=== PATIENT | female | born 1980 | race Caucasian/White ===

== ENCOUNTER 2020-05-12 09:30 | Outpatient (CLI) | payer BC, SELFPAY | END 2020-05-12 09:31 | disposition home or self-care (01) | LOC: ANHSURGERY 09:33 | PROVIDERS: PCP Family Medicine; Visit Provider Urology | DX: N39.3 Stress incontinence (female) (male) (principal) | CPT/HCPCS: 87086; 87088 ==

== ENCOUNTER 2020-05-21 00:44 | Outpatient (CLI) | payer BC, SELFPAY ==
[2020-05-21 18:19] LABS: SARS-CoV-2 RNA PCR Negative
== END 2020-05-21 00:45 | disposition home or self-care (01) ==
LOC: ANHCOVIDDT 00:44
PROVIDERS: PCP Family Medicine; Visit Provider Urology
DX: Z01.812 Encounter for preprocedural laboratory examination (principal); Z20.828 Contact with and (suspected) exposure to other viral communicable diseases
CPT/HCPCS: 87635; C9803; U0003

== ENCOUNTER 2020-05-23 02:02 | Day surgery (SDC) | payer BC, SELFPAY ==
[2020-05-06 14:09] VITALS: BMI 35.0
--- NOTE | 2020-05-18 19:52 | PM.IMHP ---
H&P: HPI History of Present Illness Date/Time: 05/18/20 19:52 Chief complaint: Stress Incontinence Narrative: Bria Florentino is a 39 year old female with MARI and asymptomatic POP [facility] Social History Social History Smoking status: Never smoker Alcohol intake: never Substance use: never Substance use type: does not use Meds Home Medications and Allergies Home Medications Medication Instructions Recorded Confirmed Type cetirizine 10 mg tablet 10 mg PO DAILY 10/19/19 05/06/20 History levonorgestrel 20 mcg/24 hours (5 1 device I-UTERINE ONCE 10/19/19 05/06/20 History yrs) 52 mg intrauterine device fluoxetine 40 mg PO DAILY 05/06/20 05/06/20 History Allergies Allergy/AdvReac Type Severity Reaction Status Date / Time No Known Allergies Allergy Unknown Verified 05/06/20 14:01 Exam Const: General: no acute distress HENMT: Mouth: Yes moist mucous membranes Eyes: General: appearance normal, both eyes and all related structures Resp: Effort & Inspection: normal respiratory effort GI: GI Palp: Yes Soft to palpation : External Female Exam: normal external appearance Other: Urethral hypermobility [place] at -1 Skin: General skin exam: normal color Neuro: Speech: normal speech Extrem: General: normal exam except as noted Assessment and Plan Assessment and plan (1) MARI (stress urinary incontinence, female): Code(s): N39.3 - Stress incontinence (female) (male) Status: Acute Assessment and Plan: urethral sling (2) Uterine prolapse: Code(s): N81.4 - Uterovaginal prolapse, unspecified Status: Acute Assessment and Plan: observation
--- NOTE | 2020-05-22 11:49 | WPDANESEPPF ---
Anes - Initial Pre Proc Eval Procedure: Operation Date: 05/23/20 11:00 Proposed Procedures p Urethral Sling - Arnoldo Byers MD Date/Time: 05/22/20 11:49 Surgeon: Arnoldo Byers MD Pre Op Diagnosis: Stress Incontinence Patient Data Age: 39 Gender: F Height: 1.57 m Weight: 87 kg Allergies Allergy/AdvReac Type Severity Reaction Status Date / Time No Known Allergies Allergy Unknown Verified 05/23/20 09:47 Home Medications Medication Instructions Recorded Confirmed Type cetirizine 10 mg tablet 10 mg PO DAILY 10/19/19 05/23/20 History levonorgestrel 20 mcg/24 hours (5 1 device I-UTERINE ONCE 10/19/19 05/23/20 History yrs) 52 mg intrauterine device fluoxetine 40 mg PO DAILY 05/06/20 05/23/20 History Patient hx anesthesia problems: none Family hx anesthesia problems: none [facility] Social History Social History (Reviewed 04/15/20 @ 08:33 by Tatiana Aponte [facility]) Smoking status: Never smoker Alcohol intake: never Substance use: never Substance use type: does not use Living arrangements: with family Anes - Eval Final PreProcedure Day of Procedure 05/22/20 11:49 Patient weight: obese Heart: regular rate and rhythm Lungs: clear to auscultation and normal air movement Airway: Mallampati scale class II Neurological: alert and oriented Last oral intake: >/= 8 hours ASA classification: II Emergent: no Anesthetic plan: proceed Anesthesia type and monitoring: general GIVS and standard monitoring Informed Consent: The patient's anesthetic plan and its attendant risks and benefits were discussed with the patient/family/POA. Questions were solicited and answers provided to the satisfaction of the patient/family/POA.
--- NOTE | 2020-05-23 07:20 | WPDHPUPDATE1 ---
History and Physical Update Update Date/Time: 05/23/20 07:20 History and Physical has been reviewed, including an updated exam of the patient. There are NO changes in the patient's condition. Risks, benefits, and alternatives have been discussed and questions answered. Patient agrees to proceed with procedure.
[2020-05-23] MEDS: LACTATED RINGERS 1,000 ML 30 ML IV CONT (09:32)
[2020-05-23 10:05] VITALS: BP 134/72; PULSE 76; RESP 18; TEMP 36.3; O2SAT 99
[2020-05-23] MEDS: ceFAZolin 2 GM/D5W 50 ML 2 GM/50 ML BAG IVPB (11:13)
[2020-05-23] MEDS: BUPIVACAINE/EPINEPHRINE 0.25% 50 ML VIAL 10 ML INFILTRATE (11:35)
--- NOTE | 2020-05-23 11:44 | PM.PROC ---
Procedure Note - Detailed Date of procedure: 05/23/20 Pre-op diagnosis: Stress Incontinence Stress urinary incontinence Post-op diagnosis: same Procedure performed: Transobturator Mid-urethral sling Cystoscopy Description of procedure: This is a patient with confirmed stress urinary incontinence. She desires correction. She understands the risks of bleeding, infection, damage to the urinary tract, lack of cure of stress incontinence, recurrence of stress incontinence, postoperative voiding dysfunction including incontinence and retention, need for ancillary procedures to loosen remove the sling, postoperative voiding dysfunction including retention and overactive bladder, hip and leg pain, dyspareunia, mesh related complications including exposure and extrusion. She agrees to proceed. She understands it will not help overactive bladder symptoms if present. She was correctly identified and informed consent obtained. She is brought to the operating room. She was given appropriate anesthesia. She was placed in the dorsal lithotomy position. All pressure points were padded. She was given appropriate perioperative antibiotics and a time-out performed. A Jimenez catheter is placed. she has a cystocele with uterine prolapse. She is not ready for intervention on this quite yet As she is minimally bothered. I marked out the thigh incisions anesthetize the skin and made those incisions. I anesthetized the anterior vaginal wall over the mid urethra. I made a 1 cm incision. I dissected out laterally taking great care not to injure the urethra or the vaginal wall. Passed the helical trocars 1st on the left and then on the right from the thigh incision towards the vaginal incision. Sling was connected to the trocars and brought out through the thigh incision. I tensioned the sling appropriately. I cut and removed the plastic sheaths. I closed the incision with 2 0 Vicryl. I then performed cystoscopy. There was no surgical artifact or abnormalities inside the bladder. The urethra was normal without surgical artifact. I cut the excess sling material. I closed the incisions with glue. She was awakened and transferred to the PACU in stable condition. Implants: Mid urethral sling Surgeon: Arnoldo Byers MD Drains: No Packing: No Pathology: none sent Complications: No immediate complications Condition: stable Disposition: PACU
[2020-05-23 11:50] VITALS: BP 117/67; PULSE 80; RESP 16; O2SAT 96
[2020-05-23] MEDS: IBUPROFEN 400 MG TABLET PO (12:17)
[2020-05-23 12:20] VITALS: BP 135/71; PULSE 79; RESP 16
[2020-05-23 12:50] VITALS: BP 142/71; PULSE 62; RESP 18
== END 2020-05-23 12:55 | disposition home or self-care (01) ==
PROVIDERS: PCP Family Medicine; Visit Provider Urology
PROC: (CPT 51992; principal; 2020-05-23 11:00)
DX: N39.3 Stress incontinence (female) (male) (principal); N32.81 Overactive bladder; N81.4 Uterovaginal prolapse, unspecified
CPT/HCPCS: 51992; A9270; C1771; J0690; J2250; J2704; J3010; J7030; J7120

== ENCOUNTER 2021-11-17 13:33 | Outpatient (CLI) | payer BC, SELFPAY ==
--- NOTE | ~2021-11-17 | US_ITS ---
EXAMINATION: US pelvic complete w TV DATE: 11/17/2021 14:21 INDICATION: Abnormal uterine bleeding. Missing IUD strings. Comparison:No prior studies for comparison. TECHNIQUE: Multiple transabdominal and endovaginal sonographic images of the pelvis performed. FINDINGS: The uterus measures 11.7 x 5.6 x 7.8 cm. There is a uterine fibroid measuring 3.9 x 3.8 x 3 .9 cm. The endometrial complex measures 6 mm. IUD is not identified in the uterus. The right ovary measures 4.3 x 3.5 x 3.9 cm and the left ovary measures 2.2 x 1.7 x 1.7 cm. There is a 2.7 cm right ovarian cyst. There are small follicles in each ovary. Normal doppler signal in both o varies. There is no free fluid in the pelvis. There are no abnormal masses seen on either side. IMPRESSION: 1. Enlarged fibroid uterus. IUD not visualized. 2: 2.7 cm right ovarian cyst. Reviewed, dictated and finalized at location B. CUTTER
== END 2021-11-17 13:34 ==
LOC: MICIMG 13:33
PROVIDERS: Visit Provider Nurse Practitioner
DX: N93.8 Other specified abnormal uterine and vaginal bleeding (principal); T83.32XA Displacement of intrauterine contraceptive device, initial encounter; D25.9 Leiomyoma of uterus, unspecified; N83.201 Unspecified ovarian cyst, right side
CPT/HCPCS: 76830; 76856

== ENCOUNTER 2021-11-20 09:26 | Outpatient (CLI) | payer BC, SELFPAY ==
--- NOTE | ~2021-11-20 | XR_ITS ---
EXAMINATION: XR abdomen/kub 1V DATE: 11/20/2021 10:56 INDICATION: Displacement of intrauterine device. TECHNIQUE: A supine view of the abdomen on 2 radiographs was obtained. COMPARISON: None. FINDINGS: There are no dilated loops of bowel. There is no intrauterine device. IMPRESSION: 1. No intrauterine device present. Reviewed, dictated and finalized at location A. ICAL RESEARCH TECHNICIAN
== END 2021-11-20 09:27 ==
PROVIDERS: Visit Provider Obstetrics & Gynecology Gynecology
DX: T83.32XA Displacement of intrauterine contraceptive device, initial encounter (principal)
CPT/HCPCS: 74018

== ENCOUNTER → 2022-01-04 07:28 | Outpatient (CLI) | payer BC, SELFPAY ==
--- NOTE | ~2022-01-04 | MM_ITS ---
EXAMINATION: MM screening caridad BI w daquan HISTORY: Screening mammogram TECHNIQUE: Craniocaudal and mediolateral oblique 3-D tomosynthesis images were obtained and synthetic 2-D images were generated. CAD analysis was submitted and interpreted. COMPARISON: No prior mammogram is available for comparison at this institution. BREAST PARENCHYMAL COMPOSITION: The breasts are heterogeneously dense, which may obscure small masses . FINDINGS: There is no evidence of suspicious mass, calcification, or architectural distortion to sugg est malignancy in either breast. There has been no suspicious interval change. IMPRESSION: 1. No mammographic evidence of malignancy. 2. Recommend routine screening mammography in one year. BI-RADS Category 1: Negative Reviewed, dictated and finalized at location A.
== END ==
PROVIDERS: PCP Family Medicine; Visit Provider Nurse Practitioner
DX: Z12.31 Encounter for screening mammogram for malignant neoplasm of breast (principal)
CPT/HCPCS: 77063; 77067

== ENCOUNTER 2022-01-25 01:45 | Day surgery (SDC) | payer BC, SELFPAY ==
[2022-01-13 15:03] VITALS: BMI 34.7
--- NOTE | 2022-01-13 15:10 | PC.NURSE ---
Report to the Outpatient Waiting Room, entrance under the green pavilion located off [facility], at time 0600 on date 01/25/22. OR Time: 0730. - You and your visitor will be asked a series of questions to screen for COVID 19 for your protection. - A mask is required within the hospital. One visitor will be allowed to accompany the patient into the hospital. Patients visitor will be instructed to remain with patient at all times or leave the building. We will allow the visitor to come back to the postoperative area when patient is ready. Preoperative COVID Testing Requirements: No COVID Test needed if: (proof is required; if not received patient will have Rapid Test prior to entry) - Patient has received COVID Vaccine at least 14 days prior to procedure date or - Patient has positive COVID test result within last 90 days of surgery date. COVID Test needed if above criteria is not met Patients may have clear liquids (water, carbonated beverages, clear teas, apple juice) until 3 hours prior to surgery with a maximum of 20 ounces. - No food from midnight until time of surgery Take the following medications with a SIP of water the morning of surgery: FLUOXETINE Medications to discontinue per physician: N/A Date to take last dose: N/A Please no make-up, nail turkmen, hairspray, perfume, deodorant, or body powder the day of surgery. No jewelry (including any body piercings) or valuables the day of surgery, leave them at home. Please take a shower or bath the night before, or the morning of, surgery with an antibacterial soap. Wear comfortable, loose fitting clothing. - Jewelry must be removed prior to entering the operating room. Rings and piercings that are not removed may be cut off. - The hospital will not accept responsibility for valuables. - Please leave all valuables, including medications, at home the day of surgery. If you are going home after surgery, a licensed professional driver must drive you home. - NO public transportation without another adult. - We recommend that an adult stay with you for 24 hours following discharge. - We also recommend that you do not drive, make important decision, drink alcoholic beverages, or take any drugs that were not prescribed by your health care provider for at least 24 hours after your discharge time. Follow any additional instructions given to you from your surgeon. Telephone instructions given to DERICK SORENSEN and asked if any additional questions and then verbalized understanding. Patient advised to call surgeon office or pre surgery nurse liaison [phone] if any additional questions.
--- NOTE | 2022-01-25 07:07 | WPDANESEPPF ---
Anes - Initial Pre Proc Eval Procedure: Operation Date: 01/25/22 07:30 Proposed Procedures p Hysteroscopy Dilation and Curettage - Madiha Guo MD Date/Time: 01/25/22 07:07 Surgeon: Madiha Guo MD Pre Op Diagnosis: Menorrhagia Patient Data Age: 41 Gender: F Height: 1.57 m Weight: 86.2 kg Allergies Allergy/AdvReac Type Severity Reaction Status Date / Time No Known Allergies Allergy Unknown Verified 01/25/22 07:30 Home Medications Medication Instructions Recorded Confirmed Type cetirizine 10 mg tablet 10 mg PO DAILY 10/19/19 01/25/22 History fluoxetine 40 mg capsule See Rx Instructions .ROUTE 05/11/21 01/25/22 Rx .COMPLEX #90 cap Patient hx anesthesia problems: none Family hx anesthesia problems: none Results Review: All pre-operative results and documents have been reviewed as part of the pre-operative evaluation. [facility] Past Medical History Medical History (Updated 01/25/22 @ 07:35 by Madiha Guo MD) Depression Generalized anxiety disorder with panic attacks History of spontaneous X2 (normal spontaneous vaginal delivery) X2 Obesity (BMI 30.0-34.9) Surgical History Surgical History Status post creation of urethral sling by suprapubic approach Family History Family History (Updated 10/23/21 @ 12:16 by DANIKA Ivan) Father Cerebrovascular accident Mother Heart abnormality Thyroid dysfunction High cholesterol Sibling No problems noted. Sibling No problems noted. Sibling No problems noted. Grandparent , 2002; unknown cause No problems noted. Other Diabetes mellitus Family history of hypercholesterolemia Family history of lymphoma Social History Social History (Updated 10/23/21 @ 08:57 by DANIKA Ivan) Smoking status: Never smoker Alcohol intake: current Alcohol use details: 2/MONTH Substance use: never Substance use type: does not use Living arrangements: with family Spiritual care concerns: No Anes - Eval Final PreProcedure Day of Procedure 01/25/22 07:07 Patient weight: obese Heart: regular rate and rhythm Lungs: clear to auscultation and normal air movement Airway: Mallampati scale class II Neurological: alert and oriented Last oral intake: >/= 8 hours ASA classification: II Emergent: no Anesthetic plan: proceed Anesthesia type and monitoring: general GIVS and standard monitoring Results Review: All pre-operative results and documents have been reviewed as part of the pre-operative evaluation. Informed Consent: The patient's anesthetic plan and its attendant risks and benefits were discussed with the patient/family/POA. Questions were solicited and answers provided to the satisfaction of the patient/family/POA.
[2022-01-25 07:18] VITALS: BP 165/90; PULSE 72; RESP 16; TEMP 36.3; O2SAT 99
[2022-01-25] MEDS: ACETAMINOPHEN 500 MG TABLET 1000 MG PO (07:30)
--- NOTE | 2022-01-25 07:30 | WPDHPUPDATE1 ---
History and Physical Update Update Date/Time: 01/25/22 07:30 History and Physical has been reviewed, including an updated exam of the patient. There are NO changes in the patient's condition. Risks, benefits, and alternatives have been discussed and questions answered. Patient agrees to proceed with procedure.
--- NOTE | 2022-01-25 07:30 | PM.HPGS ---
History of Present Illness History of Present Illness Consent: Risks, benefits, and alternatives have been discussed and questions answered. Patient agrees to proceed with procedure. Chief complaint: Menorrhagia Narrative: Bria Florentino is a 41 year old female with cycles approximately every 2 weeks July of 2021 in August of 2021 followed by monthly cycles that are quite heavy changing approximately a pad per hour. Patient was determined to have her IUD expulsed. Pelvic ultrasound revealed no IUD as did KUB. Ultrasound did show a uterine fibroid and was otherwise normal. It was recommended to proceed with D&C hysteroscopy to evaluate the endometrium. Risks of infection, bleeding, perforation, and fluid overload were reviewed. Patient voices understanding and agrees to proceed. Review of Systems Constitutional: Constitutional: Reports night sweats Musculoskeletal: Musculoskeletal: Reports back pain, Reports arthralgias and Reports neck pain PMFSH Past Medical History Medical History (Updated 01/25/22 @ 07:35 by Madiha Guo MD) Depression Generalized anxiety disorder with panic attacks History of spontaneous X2 (normal spontaneous vaginal delivery) X2 Obesity (BMI 30.0-34.9) Surgical History Surgical History Status post creation of urethral sling by suprapubic approach Family History Family History (Updated 10/23/21 @ 12:16 by DANIKA Ivan) Father Cerebrovascular accident Mother Heart abnormality Thyroid dysfunction High cholesterol Sibling No problems noted. Sibling No problems noted. Sibling No problems noted. Grandparent , 2002; unknown cause No problems noted. Other Diabetes mellitus Family history of hypercholesterolemia Family history of lymphoma Social History Social History (Updated 10/23/21 @ 08:57 by Gloria Lynch Bob) Smoking status: Never smoker Alcohol intake: current Alcohol use details: 2/MONTH Substance use: never Substance use type: does not use Living arrangements: with family Spiritual care concerns: No Meds Home Medications and Allergies Home Medications Medication Instructions Recorded Confirmed Type cetirizine 10 mg tablet 10 mg PO DAILY 10/19/19 01/13/22 History fluoxetine 40 mg capsule See Rx Instructions .ROUTE 05/11/21 01/13/22 Rx .COMPLEX #90 cap Allergies Allergy/AdvReac Type Severity Reaction Status Date / Time No Known Allergies Allergy Unknown Verified 01/25/22 07:30 Exam Const: General: healthy appearing and alert Orientation/consciousness: patient oriented x3 Resp: Effort & Inspection: normal respiratory effort Auscultation: clear to auscultation bilaterally Cardio: Rate: regular rate Rhythm: regular rhythm GI: GI Palp: Yes Soft to palpation, No Tenderness to palpation present (GI) and No Palpable mass present : External Female Exam: normal external appearance Speculum Exam - Vagina: normal appearance of the vagina, normal vaginal discharge and other (1st degree cystocele) Speculum Exam - Cervix: normal appearance of the cervix Bimanual exam- vagina & uterus: uterine size normal and consistency normal Bimanual Exam- Adnexa, other: normal adnexae and No adnexal tenderness Neuro: General: patient oriented x3 Assessment and Plan Assessment and plan (1) Menorrhagia: Code(s): N92.0 - Excessive and frequent menstruation with regular cycle Status: Acute Assessment and Plan: Plan to proceed with D&C hysteroscopy
[2022-01-25] MEDS: LACTATED RINGERS 1,000 ML 30 ML IV CONT (07:42)
[2022-01-25] MEDS: KETOROLAC 30 MG/ML VIAL (*BKC) IV PUSH (08:28)
--- NOTE | 2022-01-25 08:33 | W.PM.PROC2 ---
Procedure Note - Detailed Date of Procedure 01/25/22 Pre-op Diagnosis Menorrhagia Post-op Diagnosis Same Procedure Performed D&C hysteroscopy Surgeon Madiha Guo MD Anesthesia MAC and Local Findings Uterus sounds to 8cm and appears grossly normal Description of Procedure The patient was taken to operating room and placed under anesthesia in the dorsal lithotomy position. She was prepped and draped in the usual sterile fashion. [place] speculum was placed in the vagina and the cervix is grasped on the anterior lip with a tenaculum. The cervix is injected in each quadrant with 1% lidocaine. The uterus is sounded to 8cm. The cervix is serially dilated to an 8 [place]. The diagnostic hysteroscope was placed with the stated findings. The hysteroscope was removed. The endometrium was sharply curetted until a good uterine cry was noted in all areas. All instruments were then removed. Patient is awakened from anesthesia and taken to recovery in stable condition. Sponge, needle and instrument counts are correct per the OR staff. Estimated Blood Loss 5 Drains No Packing No Pathology Yes (Endometrial curetting) Complications No immediate complications Condition Stable Disposition PACU
[2022-01-25 08:38] VITALS: BP 125/65; PULSE 58; RESP 16; O2SAT 97
[2022-01-25 09:08] VITALS: BP 124/72; PULSE 52; RESP 16
[2022-01-25 09:38] VITALS: BP 138/72; PULSE 73; RESP 16
[2022-01-25 09:55] VITALS: BP 121/68; PULSE 63; RESP 16
== END 2022-01-25 10:05 | disposition home or self-care (01) ==
PROVIDERS: PCP Family Medicine; Visit Provider Obstetrics & Gynecology Gynecology
PROC: 0U5B8ZZ Destruction of Endometrium, Via Natural or Artificial Opening Endoscopic (ICD-10-PCS; CPT 58563; principal; 2022-01-25 07:30)
DX: N92.0 Excessive and frequent menstruation with regular cycle (principal); F32.9 Major depressive disorder, single episode, unspecified; F41.1 Generalized anxiety disorder; F41.0 Panic disorder [episodic paroxysmal anxiety]; E66.9 Obesity, unspecified; Z68.34 Body mass index [BMI] 34.0-34.9, adult
CPT/HCPCS: 58558; 88305; A9270; J1100; J1885; J2250; J2405; J2704; J3010; J7030; J7120

== ENCOUNTER 2022-03-24 14:01 | Emergency (ER) | payer BC, SELFPAY ==
--- NOTE | 2022-03-24 14:02 | ED.EAR ---
HPI - Ear Problem General Stated complaint: Bilateral ear pain Time Seen by Provider: 03/24/22 14:02 Source: patient Mode of arrival: ambulatory Limitations: no limitations History of Present Illness HPI Narrative: Ms. Florentino is a 41-year-old female patient presenting to the clinic today with complaints of bilateral ear pain 2 to 3 days. She reports she has been swimming in a pool. She reports that there is drainage coming from her left ear that occurred on Tuesday. Has been putting peroxide in her ear. Related Data Home Medications Medication Instructions Recorded Confirmed cetirizine 10 mg tablet (Zyrtec) 10 mg PO DAILY 10/19/19 01/25/22 Allergies Allergy/AdvReac Type Severity Reaction Status Date / Time No Known Allergies Allergy Unknown Verified 01/25/22 07:30 Review of Systems Review of Systems: Pertinent positives per HPI. Patient denies any fever, chills, rash, headache, visual changes, dizziness, cough, runny nose, sore throat, shortness of breath, chest pain, palpitations, nausea, vomiting, diarrhea, constipation, abdominal pain, or any urinary issues. [facility] Past Medical History Medical History Depression Generalized anxiety disorder with panic attacks History of spontaneous X2 (normal spontaneous vaginal delivery) X2 Obesity (BMI 30.0-34.9) Surgical History Surgical History Status post creation of urethral sling by suprapubic approach Family History Family History Father Cerebrovascular accident Mother Heart abnormality Thyroid dysfunction High cholesterol Sibling No problems noted. Sibling No problems noted. Sibling No problems noted. Grandparent , 2002; unknown cause No problems noted. Other Diabetes mellitus Family history of hypercholesterolemia Family history of lymphoma Social History Social History Smoking status: Never smoker Alcohol intake: current Alcohol use details: 2/MONTH Substance use: never Substance use type: does not use Spiritual care concerns: No Comments At the time of my signature, I reviewed and agree with the nursing past medical, surgical, social, and family history. There is no relevant family history pertinent to the patient complaint. Exam Narrative: General: Well-developed, well nourished, in no apparent distress Head: Normocephalic, atraumatic Eyes: Pupils equally round and reactive to light bilaterally, EOM intact, sclera and conjunctive clear, no discharge, lids normal Ears: TMs intact, dull, mild bulging, right ear canals clear, left ear canal swollen and red with white exudate, tenderness palpation over the tragus and pulling of the pinna. Grossly hearing normal. Nose: Nares patent, clear discharge, no inflammation, no sinus tenderness. Mouth: Oropharynx without lesions or masses, good dentition, MMM. Neck: Supple, trachea midline, no enlargement of anterior or posterior cervical nodes, no thyroid masses or goiter palpable. Cardio: Regular rate and rhythm, s1 and s2 normal, no murmur appreciated. Resp: Clear to auscultation bilaterally anteriorly and posteriorly, no rhonchi, rales, wheezing or rubs Course Course Emergency Course: Portions of this record may have been created with voice recognition software. Level of Care: Express Care Visit Vital Signs Vital signs: Vital signs reviewed Medical Decision Making MDM Narrative Medical decision making narrative: At the time of visit patient is resting comfortably on the exam table. She has left otitis externa with eustachian tube dysfunction bilaterally. Ofloxacin eardrops were prescribed and supportive measures were discussed with the patient for eustachian tube dysfunct
[2022-03-24 14:12] VITALS: BP 144/85; PULSE 74; RESP 16; TEMP 36.8; O2SAT 98
== END 2022-03-24 14:18 | disposition home or self-care (01) ==
PROVIDERS: Emergency Provider Nurse Practitioner Family; PCP Family Medicine
DX: H60.392 Other infective otitis externa, left ear (principal); H69.83 Other specified disorders of Eustachian tube, bilateral; E66.9 Obesity, unspecified; Z68.35 Body mass index [BMI] 35.0-35.9, adult; F32.A Depression, unspecified; F41.1 Generalized anxiety disorder; F41.0 Panic disorder [episodic paroxysmal anxiety]
CPT/HCPCS: 99213; G0463